=== PATIENT | female | born 1975 | race Caucasian/White ===

== ENCOUNTER 2019-12-28 18:35 | Emergency (ER) | payer OTHER, SELFPAY ==
--- OUTSIDE RECORDS SUMMARY | 2019-12-28 18:38 | XMS REPORT | Summary of Care ---
:1975 Author Organization [facility] - Health Address [address] [place] [id number] Care Team Providers Name Role Phone Merritt Russell MD Primary Care Provider Encounter Details Date Type Department Care Team Description 06/23/2019 Orders Only [facility] Doctor Unassigned, No [address] [facility] Name [place] [id number] [place] [address] Allergies No Known Allergiesdocumented as of this encounter (statuses as of 06/23/2019) Medications Medication Sig Dispensed Refills Start Date End Date Status brompheniramine-pseudoe Take 10 mL by 118 mL 0 10/19/2018 Active phedrine-DM (BROMFED mouth 4 (four) DM) 2-30-10 mg/5 mL times daily as syrupIndications: Upper needed for respiratory tract Congestion/Allerg infection, unspecified ies or Cold type symptoms. documented as of this encounter (statuses as of 06/23/2019) Active Problems No known active problemsdocumented as of this encounter (statuses as of 2018) Social History Tobacco Use Types Packs/Day Years Used Date Current Every Day Smoker Cigarettes 1 5 Smokeless Tobacco: Never Used Alcohol Use Drinks/Week oz/Week Comments No 0 Standard drinks or equivalent 0.0 Sex Assigned at Date Recorded Not on file Job Start Date Occupation Industry Not on file Not on file Not on file Travel History Travel Start Travel End No recent travel history available. documented as of this encounter Last Filed Vital Signs Not on filedocumented in this encounter Plan of Treatment Date Type Specialty Care Team Description 06/23/2019 Office Visit Family Medicine Merritt Russell MD [address] [place] [address] DR KAY, ANAND [id number] Health Maintenance Due Date Last Done Comments PNEUMOCOCCAL 0-64 YEARS COMBINED SERIES (1 of 1 - 1981 PPSV23) DTaP,Tdap,and Td Vaccines (1 - Tdap) 1994 PAP SMEAR 01/31/1996 MAMMOGRAM 2015 INFLUENZA VACCINE (#1) 2019 documented as of this encounter Procedures Procedure Name Priority Date/Time Associated Diagnosis Comments ASSIGNMENT OF BENEFITS Routine 06/23/2019 2:37 PM CDT documented in this encounter Results Not on filedocumented in this encounter Insurance Payer Benefit Plan Subscriber ID Effective Dates Phone Address Type / Group [facility] [id number] 2019-Xin [phone] [address] PPO/POS [place] - OUT OF t 7 [id number] [place] [address] documented as of this encounter
--- OUTSIDE RECORDS SUMMARY | 2019-12-28 18:38 | XMS REPORT ---
:1975 [facility] Address [address] [place] [address] [address] [place] [address] Care Team Providers Name Role Phone Unavailable Unavailable Unavailable Problems This patient has no known problems. Allergies, Adverse Reactions, Alerts This patient has no known allergies or adverse reactions. Medications This patient has no known medications.
--- OUTSIDE RECORDS SUMMARY | 2019-12-28 18:38 | XMS REPORT | Summary of Care ---
:1975 Author Organization [facility] Address [address] [place] [address] Care Team Providers Name Role Phone Merritt Russell MD Primary Care Provider Reason for Visit Reason Comments Fever Sore Throat Ear Problem Encounter Details Date Type Department Care Team Description 06/23/2019 Office Visit [facility] Family Merritt Russell Rhinosinusitis ( Primary Medicine - Dustin Mijares MD Dx) [address] [facility] [place] [address] [phone] Allergies No Known Allergiesdocumented as of this encounter (statuses as of 06/23/2019) Medications Medication Sig Dispensed Refills Start Date End Date Status brompheniramine-pseudoep Take 10 mL by 118 mL 0 10/19/2018 Active hedrine-DM (BROMFED DM) mouth 4 (four) 2-30-10 mg/5 mL times daily as syrupIndications: Upper needed for respiratory tract Congestion/Aller infection, unspecified gies or Cold type symptoms. azithromycin 500 mg Take 1 tablet by 3 tablet 0 06/23/2019 Active tabletIndications: mouth daily. Rhinosinusitis documented as of this encounter (statuses as [...] of this encounter Last Filed Vital Signs Vital Sign Reading Time Taken Comments Blood Pressure 103/73 06/23/2019 2:46 PM CDT Pulse 88 06/23/2019 2:46 PM CDT Temperature 37 C (98.6 F) 06/23/2019 2:46 PM CDT Respiratory Rate 18 06/23/2019 2:46 PM CDT Oxygen Saturation - - Inhaled Oxygen Concentration - - Weight 101.9 kg (224 lb 9.6 oz) 06/23/2019 2:46 PM CDT Height 170.2 cm (5' 7") 06/23/2019 2:46 PM CDT Body Mass Index 35.18 06/23/2019 2:46 PM CDT documented in this encounter Progress Merritt Winkler MD - 06/23/2019 3:00 PM CDT CC: YELENA Massey is a 44 year old female URI Presenting symptoms: congestion, cough, ear pain, facial pain, fatigue, fever, rhinorrhea and sore throat Duration: 5 days Timing: Constant Progression: Worsening No Known Allergies Current Outpatient Medications Medication Sig Dispense Refill exfapvgmchaddqx-efdwuzptdxrpntc-GG (BROMFED DM) 2-30-10 mg/5 mL syrup Take 10 mL by mouth 4 (four) times daily as needed for Congestion/Allergies or Cold symptoms. 118 mL 0 No current facility-administered medications for this visit. Past Medical History: Diagnosis Date Allergic rhinitis Diaphragmatic hernia without mention of obstruction or gangrene Past Surgical History: Procedure Laterality Date APPENDECTOMY SECTION LAPAROSCOPIC CHOLECYSTECTOMY TONSILLECTOMY TUBAL LIGATION Social History Socioeconomic History Marital status: Spouse name: Not on file Number of children: Not on file Years of education: Not on file Highest education level: Not on file Occupational History Not on file Social Needs Financial resource strain: Not on file Food insecurity: Worry: Not on file Inability: Not on file Transportation needs: Medical: Not on file Non-medical: Not on file Tobacco Use Smoking status: Current Every Day Smoker Packs/day: 1.00 Years: 5.00 Pack years: 5.00 Types: Cigarettes Smokeless tobacco: Never Used Substance and Sexual Activity Alcohol use: No Alcohol/week: 0.0 oz Drug use: No Sexual activity: Not on file Lifestyle Physical activity: Days per week: Not on file Minutes per session: Not on file Stress: Not on file Relationships Social connections: Talks on phone: Not on file Gets together: Not on file Attends rastafari service: Not on file Active member of club or organization: Not on file Attends meetings of clubs or organizations: Not on file Relationship status: Not on file Intimate partner violence: Fear of current or ex partner: Not on file Emotionally abused: Not on file Physically abused: Not on file Forced sexual activity: Not on file Other Topics Concern Not on file Social History Narrative LI[facility] in [facility] Family History Problem Relation Age of Onset Coronary Heart Disease Mother MA at 44; CABG Lipids Mother Diabetes Father Review of Systems Constitutional: Positive for fatigue and fever. HENT: Positive for congestion, ear pain, rhinorrhea and sore throat. Respiratory: Positive for cough. BP 103/73 (BP Location: Left arm, Patient Position: Sitting, BP CUFF SIZE: Adult Large) | Pulse 88| Temp 37 C (98.6 F) | Resp 18 | Ht 5' 7" (1.702 m ) | Wt 224 lb 9.6 oz (101.9 kg) | BMI 35.18 kg/m Physical Exam Constitutional: She is oriented to person, place, and time. She appears well- developed and well-nourished. HENT: Head: Normocephalic and atraumatic. Eyes: Pupils are equal, round, and reactive to light. Conjunctivae are normal. Neck: Normal range of motion. Neck supple. No JVD present. No tracheal deviation present. No thyromegaly present. Cardiovascular: Normal rate, regular rhythm, normal heart sounds and intact distal pulses. Exam reveals no gallop and no friction rub. No murmur heard. Pulmonary/Chest: Effort normal and breath sounds normal. No respiratory distress. She has no wheezes. She has no rales. She exhibits no tenderness. Abdominal: Soft. Bowel sounds are normal. She exhibits no distension and no mass. There is no tenderness. There is no rebound and no guarding. Musculoskeletal: Normal range of motion. She exhibits no edema or tenderness. Lymphadenopathy: She has no cervical adenopathy. Neurological: She is alert and oriented to person, place, and time. Skin: Skin is warm and dry. Diagnosis: 1. Rhinosinusitis azithromycin 500 mg tablet Follow up: prn Patient Care Team: Merritt Russell MD as PCP - General ([facility]ILY MEDIC[facility]) Plan of care, desired health behaviors, goals,& medication discussed with patient. Education resources & self management tools provided and reviewed with AVS. Patient/guardian/family verbalized understanding & agrees to plan of care. Barriers to care: None Ability to manage care: Good documented in this encounter Plan of Treatment Health Maintenance Due Date Last Done Comments PNEUMOCOCCAL 0-64 YEARS COMBINED SERIES (1 of - 1981 PPSV23) DTaP,Tdap,and Td Vaccines (1 - Tdap) 1994 PAP SMEAR 01/31/1996 MAMMOGRAM 2015 INFLUENZA VACCINE (#1) 2019 documented as of this encounter Results Not on filedocumented in this encounter Visit Diagnoses Diagnosis Rhinosinusitis - Primary Unspecified sinusitis (chronic) documented in this encounter Insurance Payer Benefit Plan Subscriber ID Effective Dates Phone Address Type / Group [facility] [id number] 2019-Xin [phone] [address] PPO/POS [place] - OUT OF t 7 [id number] [place] [address] documented as of this encounter
[2019-12-28] MEDS ORDERED: IBUPROFEN 400 MG TAB ONE (19:48)
[2019-12-28] MEDS ORDERED: HYDROCODONE/APAP 7.5/325 MG TAB ONE (19:48)
[2019-12-28 23:03] LABS: Urine Blood NEGATIVE (NEG); Urine Glucose NEGATIVE (NEG); Urine Protein NEGATIVE (NEG); Urine Specific Gravity <1.005 (1.005-1.030)
[2019-12-28] MEDS ORDERED: CYCLOBENZAPRINE 10 MG TAB ONE (23:38)
[2019-12-28] MEDS ORDERED: KETOROLAC 30 MG/ML INJ ONE (23:38)
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
[2019-12-29 03:56] VITALS: TEMP 97.9
[2019-12-29 04:08] VITALS: BP 125/76; O2SAT 100
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
== END 2019-12-29 00:14 | disposition home or self-care (01) ==
LOC: ER 18:35
DX: S16.1XXA Strain of muscle, fascia and tendon at neck level, initial encounter (principal); S29.012A Strain of muscle and tendon of back wall of thorax, initial encounter; V49.40XA Driver injured in collision with unspecified motor vehicles in traffic accident, initial encounter
CPT/HCPCS: 72040; 72072; 72100; 72125; 81003; 96372; 99284

== ENCOUNTER 2019-12-31 12:47 | Emergency (ER) | payer SELFPAY ==
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
--- OUTSIDE RECORDS SUMMARY | 2019-12-31 14:23 | XMS REPORT ---
:1975 [facility] [address] [place] [address] Dr. Culver [address] [place] [id number] Care Team Providers Name Role Phone Unavailable Unavailable Unavailable Problems This patient has no known problems. Allergies, Adverse Reactions, Alerts This patient has no known allergies or adverse reactions. Medications This patient has no known medications.
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
--- NOTE | 2019-12-31 14:33 | EDPHYS ---
Physician Documentation [facility] Name: Shilpa River Age: 44 yrs Sex: Female : 1975 Arrival Date: 12/31/2019 Time: 12:51 Bed 13 Private MD: ED Physician Robinson Thomas HPI: 12/31 13:24 This 44 yrs old Female presents to ER via Ambulatory with complaints of Leg jmm Pain. 13:24 The patient presents with an injury, pain. Onset: The symptoms/episode began/occurred jmm acutely, 3 day(s) ago. Modifying factors: The symptoms are alleviated by nothing. the symptoms are aggravated by movement, weight bearing. This is a 44 year old female with no chronic medical conditions that presents to the ED with complaints of right leg pain which radiates down her right leg. Patient also complains of ongoing foot and ankle pain. Patient states pain has increased since initial evaluation. . Historical: - Allergies: 13:04 No Known Allergies; ss - Home Meds: 13:04 None [Active]; ss - PSHx: 13:04 ; Tubal ligation; Appendectomy; Cholecystectomy; Left hand surgery; ss Tonsillectomy; - Immunization history:: Adult Immunizations up to date. - Social history:: Smoking status: Patient reports the use of cigarette tobacco products, smokes one-half pack cigarettes per day. ROS: 13:24 Constitutional: Negative for fever, chills, and weight loss, Cardiovascular: Negative jmm for chest pain, palpitations, and edema, Respiratory: Negative for shortness of breath, cough, wheezing, and pleuritic chest pain. 13:24 MS/extremity: Positive for pain. 13:24 All other systems are negative. Exam: 13:24 Constitutional: This is a well developed, well nourished patient who is awake, alert, jmm and in no acute distress. Head/Face: atraumatic. Eyes: EOMI, no conjunctival erythema appreciated ENT: Moist Mucus Membranes Neck: Trachea midline, Supple Chest/axilla: Normal chest wall appearance and motion. Cardiovascular: Regular rate and rhythm. No edema appreciated Respiratory: Normal respirations, no respiratory distress appreciated Abdomen/GI: Non distended, soft 13:24 Back: ROM is painful. 13:24 Musculoskeletal/extremity: FROM appreciated to the right hip, right knee, compartments are soft, full dorsalis pedis pulse, NVI. 13:24 Skin: Appearance: Color: normal in color, ecchymosis noted to the right foot. 13:24 Neuro: Orientation: is normal, Mentation: is normal, Memory: is normal. 13:24 Psych: Behavior/mood is pleasant, cooperative. Vital Signs: 13:02 BP 124 / 97; Pulse 89; Resp 16; Temp 98.8(TE); Pulse Ox 96% on R/A; Weight 104.33 kg; ss Height 5 ft. 7 in. (170.18 cm); Pain 7/10; 13:02 Body Mass Index 36.02 (104.33 kg, 170.18 cm) ss MDM: 12:58 Patient medically screened. [facility] 14:29 Data reviewed: vital signs, nurses notes. Counseling: I had a detailed discussion with lucia the patient and/or guardian regarding: the historical points, exam findings, and any diagnostic results supporting the discharge/admit diagnosis, radiology results, the need for outpatient follow up, to return to the emergency department if symptoms worsen or persist or if there are any questions or concerns that arise at home. ED course: Patient is alert and non toxic in appearance in the ED. Imaging studies are negative. Patient is advised to follow up with pcp and otherwise given strict return precautions. Patient understood and agrees with the plan of care. . 12/31 13:17 Order name: Pelvis XRAY; Complete Time: 14:29 [facility] 12/31 13:17 Order name: Tib Fib Right XRAY; Complete Time: 14:29 [facility] 12/31 13:17 Order name: Foot Right 3 View XRAY; Complete Time: 14:29 [facility] 12/31 13:17 Order name: US Extremity Venous Unilateral Ltd; Complete Time: 14:07 [facility] 12/31 13:27 Order name: Femur Right XRAY; Complete Time: 14:29 [facility] Administered Medications: No medications were administered Disposition: 12/31/19 14:31 Discharged to Home. Impression: Pain in right hip, Pain in right lower leg, Contusion of right foot. - Condition is Stable. - Discharge Instructions: Joint Pain, Pain Without a Known Cause, Hip Pain, Heat Therapy. - Prescriptions for Valium 5 mg Oral Tablet - take 1 tablet by ORAL route every 8 hours As needed; 20 tablet. Medrol (Marcelino) 4 mg Oral Tablets, Dose Pack - take 1 tablet by ORAL route as directed - follow package instructions; 1 packet. - Medication Reconciliation Form, Thank You Letter, Antibiotic Education, Prescription Opioid Use form. - Follow up: Private Physician; When: 2 - 3 days; Reason: Recheck today's complaints, Continuance of care, Re-evaluation by your physician. Addendum: 01/02/2020 17:46 Co-signature as Attending Physician, Robinson Thomas MD I agree with the assessment and c gant plan of care. Signatures: Dispatcher [employer] EDRobinson Vallecillo MD MD cha Mickail, Joel, PA PA Estefani Martel RN RN ss Malka James RN RN vc Corrections: (The following items were deleted from the chart) 12/31 15:10 14:31 12/31/2019 14:31 Discharged to Home. Impression: Pain in right hip; Pain in right vc lower leg; Contusion of right foot. Condition is Stable. Forms are Medication Reconciliation Form, Thank You Letter, Antibiotic Education, Prescription Opioid Use. Follow up: Private Physician; When: 2 - 3 days; Reason: Recheck today's complaints, Continuance of care, Re-evaluation by your physician. lucia
[2019-12-31 15:21] VITALS: BP 124/97; TEMP 98.8; O2SAT 96
== END 2019-12-31 15:10 | disposition home or self-care (01) ==
LOC: ER 12:47
DX: M25.551 Pain in right hip (principal); S90.31XA Contusion of right foot, initial encounter; F17.210 Nicotine dependence, cigarettes, uncomplicated
CPT/HCPCS: 72170; 93971; 99282